=== PATIENT | female | born 1970 | race Caucasian/White ===

== ENCOUNTER → 2024-04-26 15:39 | Outpatient (REF) | payer OTHER, SELFPAY | LOC: HWRAD 15:39 | PROVIDERS: ATTENDING PHYSICIAN Internal Medicine Rheumatology; FAMILY PHYSICIAN Family Medicine | DX: M79.641 Pain in right hand (principal); M79.642 Pain in left hand | CPT/HCPCS: 73130 ==

== ENCOUNTER 2024-06-19 20:22 | Emergency (ER) | payer OTHER, SELFPAY ==
[2024-06-19 20:28] VITALS: BP 125/75
--- NOTE | 2024-06-19 20:35 | ED.SKININJ ---
HPI-Injury
<Janice Whaley [employer] - Last Filed: 06/19/24 20:37>
General
Chief Complaint: Bite
Time Seen by Provider: 06/20/24 00:32
<BRITTANY Live - Last Filed: 06/20/24 01:10>
General
Source: patient
Exam Limitations: none
Nursing documentation reviewed up to this point in time: agreed with
History of Present Illness-Injury
Is this injury a work related problem?: No
Is pt an associate of [facility]/[place]?: No
Initial Injury comments:
Patient w/ no significant PMH presents w/ tick embedded in R flank. She was in [place] over weekend in wooded area and returned home day. She noticed the tick today when back pain started. tried to pull out visible part w/ tweezers but it
broke off. Pt reports burning pain radiating out from bite. She denies itchiness, ALVAREZ, joint pain, swelling, and other rash. She states she does not wish to be tested or tx for lyme just needs tick removed HERBERT.
ED Provider Triage
<Janice Whaley, [employer] - Last Filed: 06/19/24 20:37>
-
Patient seen by provider in Triage?: Seen in Triage
Attestation: A medical screening examination has been initiated by a qualified medical provider. Based on the assessment performed at this time, it has been determined that an emergent medical condition may exist and the patient has been informed
that further medical evaluation and possible additional diagnostic testing may be needed.
HPI: In [place], lot of ticks, just got back today, noted irritation right flank and found a black spot (Tick?) embedded. unsuccessfully tried to remove it.
GENERAL: Alert , in no apparent distress
LUNGS: No acute respiratory distress
NEUROLOGICAL: Alert and oriented
SKIN: black spot right flank with immediate surrounding redness to 2 mm out.
MUSCULOSKELETAL: Moving extremities normally
PSYCH: Normal and appropriate interaction.
This is a medical evaluation conducted in person to initiate diagnostic evaluation and provide initial therapeutics. Please see further documentation by the treating clinician.
Past History
<Janice Whaley [employer] - Last Filed: 06/19/24 20:37>
Past History
ED Past Medical History: None
ED Past Surgical History: Other
Patient has exhibited threatening behavior?: No
PSI?: No
Social History
Tobacco: Non-smoker
Alcohol: None
Drug: None
Family History
Family History: CAD
Review of Systems
<BRITTANY Live - Last Filed: 06/20/24 01:10>
Review of Systems
Constitutional: Denies fever, fatigue or chills
Respiratory: Denies cough or trouble breathing
Cardiac: Denies chest pain or palpitations
ABD/GI: Denies abdominal pain, nausea, vomiting, diarrhea or constipated
Musculoskeletal: Reports back pain; Denies joint pain or muscle pain
Skin: Reports rash; Denies itching
Neurological: Denies dizzy or headache
Phy Exam
<BRITTANY Live - Last Filed: 06/20/24 01:10>
General Physical Exam
General Presentation: mild distress
General age: appears stated age
General Skin: warm and dry
General Habitus: normal
General Mental: alert
Cardiovascular Exam
Cardiovascular Exam: regular rate/rhythm, no edema, no gallop and no murmur
Pulmonary Exam
Pulmonary Exam: lungs clear, no respiratory distress, no rales, no crackles, no rhonchi and no wheezing
Neurological Exam
Neurological Exam: alert, oriented x3 and speech normal
Skin Exam
Skin Exam: other (0.5 cm area of bruising surrounded by 1cm of redness where tick bite occurred. Can feel small mouth piece embedded in center. Tenderness to palpation of lesion. )
Course
<Janice hWaley [employer] - Last Filed: 06/19/24 20:37>
Orders/Labs/Results
Orders:
Orders
06/20/24 00:50
Doxycycline [Vibramycin] 200 mg PO NOW STA
Vital Signs
Initial and Last Documented VS:
Initial Vital Signs
Temp Pulse Resp BP Pulse Ox
98.1 F 80 18 125/75 98
06/19/24 20:28 06/19/24 20:28 06/19/24 20:28 06/19/24 20:28 06/19/24 20:28
Last Documented Vital Signs
Temp Pulse Resp BP Pulse Ox
97.5 F 65 18 124/66 98
06/20/24 00:16 06/20/24 00:16 06/20/24 00:16 06/20/24 00:16 06/20/24 00:16
<BRITTANY Live - Last Filed: 06/20/24 01:10>
Orders/Labs/Results
Orders:
Orders
06/20/24 00:50
Doxycycline [Vibramycin] 200 mg PO NOW STA
Vital Signs
Initial and Last Documented VS:
Initial Vital Signs
Temp Pulse Resp BP Pulse Ox
98.1 F 80 18 125/75 98
06/19/24 20:28 06/19/24 20:28 06/19/24 20:28 06/19/24 20:28 06/19/24 20:28
Last Documented Vital Signs
Temp Pulse Resp BP Pulse Ox
97.5 F 65 18 124/66 98
06/20/24 00:16 06/20/24 00:16 06/20/24 00:16 06/20/24 00:16 06/20/24 00:16
<Meka Patrick DO - Last Filed: 06/20/24 00:57>
Orders/Labs/Results
Orders:
Orders
06/20/24 00:50
Doxycycline [Vibramycin] 200 mg PO NOW STA
Vital Signs
Initial and Last Documented VS:
Initial Vital Signs
Temp Pulse Resp BP Pulse Ox
98.1 F 80 18 125/75 98
06/19/24 20:28 06/19/24 20:28 06/19/24 20:28 06/19/24 20:28 06/19/24 20:28
Last Documented Vital Signs
Temp Pulse Resp BP Pulse Ox
97.5 F 65 18 124/66 98
06/20/24 00:16 06/20/24 00:16 06/20/24 00:16 06/20/24 00:16 06/20/24 00:16
<BRITTANY Live - Last Filed: 06/20/24 01:10>
*Critical Care Note
Total Time (30-74mins, 75-104mins- exclusive of procedures): Not Applicable
ED Attending Note
<Janice Whaley NP - Last Filed: 06/19/24 20:37>
-
Portions of this chart may have been created with voice recognition software.� Occasional wrong word or��sound alike� substitutions may have occurred due to the inherent limitations of voice recognition software.
<Meka Patrick DO - Last Filed: 06/20/24 00:57>
ED Attending Note
Patient seen and examined by attending physician: Yes
I performed the substantive portion of visit, reviewed & personally made and approve the management plan that is documented in note by myself or NAKUL.: Yes
ED Attending Note:
This is a 53-year-old woman with no significant past medical history who states she was in [place] this weekend, visiting family, went for a walk and was and upon returning home this evening she noticed a tick embedded right lateral flank region. Her
attempted to remove the tick but believes he did not remove all the tick with some mouthparts embedded in her skin. She notes moderate local pain and local redness at the tick bite site. No fever, no other associated symptoms.
PHYSICAL EXAMINATION:
General: no apparent distress, not acutely ill
Neuro: alert and oriented. no focal neurological deficits
Psychiatric: well kept. interactive and cooperative
Musculoskeletal: [Right lateral flank has a tick bite puncture wound with a piece of tick mouthparts extruding from the puncture. There is a small surrounding area of ecchymosis and then a 2 cm area of surrounding erythema.
Mild local soft tissue swelling and mild local tenderness to palpation. There is no drainage.
Wound was prepped with rubbing alcohol and with splinter forceps I was able to remove embedded tick mouthparts without difficulty. No evidence of residual retained tick foreign body.
Due to area of surrounding erythema concern for early local soft tissue infection/cellulitis, less likely early erythema migrans. Will give a dose of Doxy now and plan for 10-day course of doxycycline with recommendations for prompt follow-up with
PCP for recheck.]
Discharge Plan
Departure
Patient Disposition: Home (Routine Discharge)
Date of Disposition: 06/20/24
Time of Disposition: 00:51
Patient with high blood pressure during this ER visit?: No
Condition: Good
Discharge Problem:
Embedded tick of flank
Instructions: Insect bites and stings
Prescriptions:
New
doxycycline monohydrate 100 mg capsule
100 mg PO BID Qty: 20 1RF
No Action
cholecalciferol (vitamin D3) 2,000 UNIT tablet
2,000 unit PO DAILY
elderberry fruit and flower 1 EACH capsule
1 ea PO DAILY
Clindamycin Hcl 300 MG Capsule
300 mg PO TID Qty: 30 0RF
mupirocin 2 % ointment
1 applic topical BID Qty: 22 0RF
Referrals:
Obey Edwards, [Family Provider] - Call in 1-3 days for appt
Interventions
Interventions:
*Risk Screen - Suicide Last Done: 06/19/24 20:28
*General Assessment Last Done: 06/20/24 00:20
*Neglect/Abuse Screening Last Done: 06/19/24 20:28
ED- Fall Risk Assessment Last Done: 06/20/24 00:54
*ED COVID-19 Vaccine History Last Done: 06/20/24 00:20
*Nursing Disposition Last Done: 06/20/24 00:59
ED-Skin Assessment Last Done: 06/20/24 00:15
Discharge Date and Time
Discharge Date/Time: 06/20/24 01:00
Print Language: KAZAKH
[2024-06-20 00:14] VITALS: BMI 26.8
[2024-06-20 00:16] VITALS: BP 124/66
[2024-06-20] MEDS: VIBRAMYCIN 200 MG PO (00:57)
== END 2024-06-20 01:00 | disposition home or self-care (01) ==
LOC: EMR 20:22
PROVIDERS: EMERGENCY PHYSICIAN Emergency Medicine; FAMILY PHYSICIAN Family Medicine
DX: S31.149A Puncture wound of abdominal wall with foreign body, unspecified quadrant without penetration into peritoneal cavity, initial encounter (principal); S30.1XXA Contusion of abdominal wall, initial encounter; S30.861A Insect bite (nonvenomous) of abdominal wall, initial encounter; W57.XXXA Bitten or stung by nonvenomous insect and other nonvenomous arthropods, initial encounter; Z88.1 Allergy status to other antibiotic agents; Z88.5 Allergy status to narcotic agent
CPT/HCPCS: 99283

== ENCOUNTER → 2024-09-11 14:20 | Outpatient (REF) | payer OTHER, SELFPAY | LOC: HWRAD 14:20 | PROVIDERS: ATTENDING PHYSICIAN Family Medicine | DX: M19.90 Unspecified osteoarthritis, unspecified site (principal); M54.9 Dorsalgia, unspecified | CPT/HCPCS: 72052; 72072 ==

== ENCOUNTER 2025-03-02 15:04 | Emergency (ER) | payer OTHER, SELFPAY ==
[2025-03-02 15:11] VITALS: BP 152/89
[2025-03-02 15:43] LABS: Hematocrit 39.2 % (37.0-47.0); Hemoglobin 13.5 g/dL (12.0-16.0); Mean Corp Hgb Conc. 34.4 g/dL (33.0-37.0); Mean Corpuscular Volume 93.8 fL (81.0-99.0); Nucleated Red Blood Cells % 0 %; Platelet Count 218 10^3/uL (130-400); Red Cell Dist. Width 11.4 % (11.5-14.5)
[2025-03-02 15:58] LABS: ALT (SGPT) 17 U/L (0-35); AST (SGOT) 19 U/L (14-36); Albumin 4.6 g/dl (3.5-5.0); Alkaline Phosphatase 60 U/L (38-126); Blood Urea Nitrogen 22 mg/dl (7-17); Calcium 9.3 mg/dl (8.4-10.2); Carbon Dioxide 28 mmol/L (22-30); Chloride 106 mmol/L (98-107); Glucose 89 mg/dl (70-99); Potassium 4.0 mmol/L (3.5-5.1); Sodium 139 mmol/L (135-145); Total Protein 7.3 g/dl (6.3-8.2); eGFR > 60.00
[2025-03-02 16:07] LABS: Troponin I < 0.012 ng/ml
[2025-03-02 16:29] VITALS: BMI 25.7
[2025-03-02 16:35] VITALS: BP 128/89
--- NOTE | 2025-03-02 16:38 | ED.GENMED ---
History of Present Illness
General
Chief Complaint: Chest Pain
Source: patient
Time Seen by Provider: 03/02/25 16:11
History of Present Illness
History of Present Illness:
This patient is a 54-year-old female says she was feeling her usual self until Wednesday when she developed what she describes as 'heartburn' pointing to her epigastric and lower midline chest area. Since that time, these episodes of 'heartburn' have
come and gone in a random pattern without specific provoking or relieving factors. It is severe enough that is interrupting her sleep. She denies associated nausea, vomiting, diaphoresis, dyspnea, back pain, neck pain, jaw pain. Then, as of
yesterday, she notes continuous sensation of feeling 'heavy throughout' her entire chest. This is also without provoking or relieving factors, and is constant. This is not pleuritic in nature. She denies any association with food, position, or
deep breath. She denies recent immobilization, trauma, leg swelling, personal or family history of DVT. Patient saw her PCP and was referred to the emergency department for further evaluation.
Past History
Past History
ED Past Medical History: None
ED Past Surgical History: Orthopedic and Other (Ovarian cyst removal, Facial reconstruction/cosmetic surgery)
Patient has exhibited threatening behavior?: No
PSI?: No
Social History
Tobacco: Non-smoker
Alcohol: Occasional
Drug: None
Personal:
Living: with family
Employment: Employed
Family History
Family History: CAD
Phy Exam
Physical Exam
Physical Exam:
GENERAL: Alert , in no apparent distress
EYE: pupils equal and reactive
NECK: Supple, no significant adenopathy.
ENT: o/p clr, mmm.
CARDIAC: Regular rate and rhythm .
LUNGS: Clear breath sounds bilaterally, no acute respiratory distress, no wheezes/rales/rhonchi
ABDOMEN: Soft, without focal tenderness, no r/g, no cvat
NEUROLOGICAL: Alert and oriented, no focal neuro deficits
SKIN: Warm and dry, skin intact.
MUSCULOSKELETAL: No edema, well perfused.
PSYCH: Normal and appropriate interaction.
Scores
Heart Score for Chest Pain Patients
STEMI patient?: Not applicable
Course
Orders/Labs/Results
Orders:
Orders
03/02/25 15:08
EKG [Electrocardiogram (*1)] Urgent
Reason for Study: Chest Pain
EKG- Treatment ONCE
03/02/25 15:27
Complete Blood Count/With Diff Urgent
Comprehensive Metabolic Panel Urgent
Troponin I Urgent
03/02/25 16:37
US Abdomen Complete/Upper Urgent
Comment:
Reason For Exam: upper pain, 'heartburn'
03/02/25 16:41
CR Chest - 2 Views Urgent
Comment:
Reason For Exam: cp
03/02/25 18:30
Troponin I Urgent
03/02/25 19:08
Mag Hydrox/Al Hydrox/Simeth [Maalox] 30 ml Phenobarb/Hyoscy/Atropine/Scop [] 10 ml Viscous Lidocaine 2% [Xylocaine Viscous Cup] 10 ml PO NOW
Abnormal Lab Results
03/02/25
15:27
RBC 4.18 L 10^6/uL
(4.20-5.40)
MCH 32.3 H pg
(27.0-31.0)
RDW 11.4 L %
(11.5-14.5)
Lymphocytes % 19.8 L %
(20.5-51.1)
BUN 22 H mg/dl
(7-17)
03/02/25 15:27
03/02/25 15:27
Vital Signs
Initial and Last Documented VS:
Initial Vital Signs
Temp Pulse Resp BP Pulse Ox
98.6 F 74 16 152/89 98
03/02/25 15:11 03/02/25 15:11 03/02/25 15:11 03/02/25 15:11 03/02/25 15:11
Last Documented Vital Signs
Temp Pulse Resp BP Pulse Ox
98.6 F 70 15 111/76 95
03/02/25 15:11 03/02/25 19:00 03/02/25 19:00 03/02/25 19:00 03/02/25 19:00
*Pulse Oximetry
SaO2: 98
Oxygen Mode of Delivery: Room air
Patient hypoxic: no
*Critical Care Note
Total Time (30-74mins, 75-104mins- exclusive of procedures): Not Applicable
Update Note
Update Note:
Patient presents to the Emergency Department with ____chest pain/'heartburn'
Number and Complexity of Problems Addressed at the Encounter
� Chronic conditions affecting care:
� Acute Exacerbation and/or Progression of Chronic Illness:
� Differential Diagnosis includes:but not limited to acs, pleurisy, gerd, gastritis, cholelithiasis, msk pain, pe, etc etc
Amount and/or Complexity of Data to be Reviewed and Analyzed
� I performed an independent evaluation of and my interpretation is:
EKG:Read by me, normal sinus rhythm, low voltage, no acute ischemia
CT:
Xrays:cxr read by jami harris
Laboratory Studies: Unremarkable, troponin x 2 undetectable
Other:us No sonographic evidence for an acute abnormality of the abdomen.
Small gallbladder polyps with the largest measuring 0.4 cm in size. No further imaging follow-up is required per ACR guidelines
� Review of other/old records reveals:
� Clinical information was obtained by an independent historian:
� Prescriptions/Medications Considered but not given:
� Further testing considered but not performed:
Risk of Complications and/or Morbidity or Mortality of Patient Management
� Social determinants of health affecting care:
� Discussion with other providers (PCP, Hospitalists, Consultants, etc):
� Escalation of care including admission/observation vs risk of discharge considered: 7:41 PM patient remains comfortable well-appearing no new symptoms no respiratory distress vital signs stable. Based on workup highly doubt
acute etiology of her symptoms that would require emergent treatment, no findings to suggest ACS, PE, dissection, etc. Discussed with patient and who is bedside importance of follow-up and reasons return to the ER.
ED Attending Note
-
Portions of this chart may have been created with voice recognition software.� Occasional wrong word or��sound alike� substitutions may have occurred due to the inherent limitations of voice recognition software.
Discharge Plan
Departure
Patient Disposition: Home (Routine Discharge)
Date of Disposition: 03/02/25
Time of Disposition: 19:40
Patient with high blood pressure during this ER visit?: Yes
Condition: Good
Discharge Problem:
Chest pain
Instructions: Chest Pain PCP Follow Up, BLOOD PRESSURE
Prescriptions:
No Action
cholecalciferol (vitamin D3) 2,000 UNIT tablet
2,000 unit PO DAILY
elderberry fruit and flower 1 EACH capsule
1 ea PO DAILY
Clindamycin Hcl 300 MG Capsule
300 mg PO TID Qty: 30 0RF
mupirocin 2 % ointment
1 applic topical BID Qty: 22 0RF
doxycycline monohydrate 100 mg capsule
100 mg PO BID Qty: 20 1RF
Referrals:
Obey Edwards, [Family Provider, Family Practice] - Follow up in 2-3 days
Activity Restrictions/Additional Instructions:
IF YOU DEVELOP RECURRENT NEW OR PERSISTENT PAIN, ANY TROUBLE BREATHING, FEVER, VOMITING, SWELLING, DIZZINESS, GET WORSE, DO NOT GET BETTER, OR OTHER WORRISOME SIGNS, PLEASE RETURN TO THE ER IMMEDIATELY!
Interventions
Interventions:
*Risk Screen - Suicide Last Done: 03/02/25 15:11
*General Assessment Last Done: 03/02/25 16:39
*Neglect/Abuse Screening Last Done: 03/02/25 15:11
*ED- Fall Risk Assessment Last Done: 03/02/25 16:39
*ED COVID-19 Vaccine History Last Done: 03/02/25 16:39
ED- Cardiac Assessment Last Done: 03/02/25 16:39
Discharge Date and Time
Print Language: [email or web address]
[2025-03-02 17:00] VITALS: BP 120/70
[2025-03-02 18:25] VITALS: BP 108/64
[2025-03-02 19:00] VITALS: BP 111/76
[2025-03-02 19:03] LABS: Troponin I < 0.012 ng/ml
[2025-03-02] MEDS: MAALOX 30 ML PO (19:52)
== END 2025-03-02 19:57 | disposition home or self-care (01) ==
LOC: EMR 15:04
PROVIDERS: EMERGENCY PHYSICIAN Emergency Medicine; FAMILY PHYSICIAN Family Medicine
DX: R07.9 Chest pain, unspecified (principal); K82.4 Cholesterolosis of gallbladder
CPT/HCPCS: 99285; 71046; 76700; 80053; 84484; 85025; 93005

== ENCOUNTER → 2025-08-08 08:41 | Outpatient (REF) | payer OTHER, SELFPAY | LOC: RAD 08:41 | PROVIDERS: ATTENDING PHYSICIAN Family Medicine | DX: R10.10 Upper abdominal pain, unspecified (principal); R07.89 Other chest pain; R12 Heartburn | CPT/HCPCS: 74019; 76700 ==